=== PATIENT | male | born 1980 | race Caucasian/White ===

== ENCOUNTER 2022-04-21 16:45 | Emergency (ER) | payer MEDICAID ==
[~2022-04-21] VITALS: Ht 185.4 cm; Wt 153.6 kg
[2022-04-21 16:50] VITALS: BP 145/83
[2022-04-21] MEDS ORDERED: CEPH500C2 PO (17:59)
[2022-04-21] MEDS ORDERED: FURO-149 PO (17:59)
[2022-04-21] MEDS ORDERED: furosemide 20MG tablet PO ONE (18:00)
[2022-04-21] MEDS ORDERED: cephalexin 500mg capsule PO ONE (18:00)
== END 2022-04-21 18:27 | disposition home or self-care (01) ==
LOC: ER 16:46
DX: M79.605 Pain in left leg (principal); R60.0 Localized edema; F12.10 Cannabis abuse, uncomplicated; F15.10 Other stimulant abuse, uncomplicated; Z79.2 Long term (current) use of antibiotics
CPT/HCPCS: 99283; A6223; A6446; A6449